=== PATIENT | male | born 1975 | race Caucasian/White ===

== ENCOUNTER 2021-09-19 11:56 | Emergency (ER) | payer SELFPAY ==
[~2021-09-19] VITALS: Ht 182.9 cm; Wt 104.3 kg
[2021-09-19] MEDS ORDERED: CLIN300 PO ×2 (13:33→13:34)
== END 2021-09-19 13:42 | disposition home or self-care (01) ==
LOC: ER 11:56
DX: L08.9 Local infection of the skin and subcutaneous tissue, unspecified (principal)
CPT/HCPCS: 99282

== ENCOUNTER 2023-09-12 15:00 | Emergency (ER) | payer OTHER ==
[~2023-09-12] VITALS: Ht 188 cm; Wt 113.4 kg
[~2023-09-12 15:00] MED LIST: CLIN300 PO
[2023-09-12 15:15] VITALS: BP 164/99
[2023-09-12] MEDS ORDERED: CEPH500 PO (15:17)
== END 2023-09-12 15:17 | disposition home or self-care (01) ==
LOC: ER 15:00
DX: L02.413 Cutaneous abscess of right upper limb (principal); F19.10 Other psychoactive substance abuse, uncomplicated
CPT/HCPCS: 99282

== ENCOUNTER 2024-04-14 12:30 | Emergency (ER) | payer OTHER ==
[~2024-04-14] VITALS: Ht 188 cm; Wt 101.2 kg
[~2024-04-14 12:30] MED LIST changes: +CEPH500 PO
[2024-04-14 12:54] VITALS: BP 139/93
== END 2024-04-14 14:31 | disposition home or self-care (01) ==
LOC: ER 12:30
DX: J06.9 Acute upper respiratory infection, unspecified (principal); Z79.899 Other long term (current) drug therapy
CPT/HCPCS: 99283